=== PATIENT | female | born 1995 | race African-American/Black ===

== ENCOUNTER 2020-09-11 11:30 | Emergency (ER) | payer OTHER ==
[~2020-09-11] VITALS: Ht 162.6 cm; Wt 83.3 kg
[2020-09-11] MEDS ORDERED: ONDANSETRON 4MG/2ML VIAL IV ONE (14:05)
[2020-09-11 14:22] LABS: BASO # 0.1 10^3/uL (0.0-0.2); BASO % 0.6 % (0.0-1.0); EOS # 0.1 10^3/uL (0.0-0.5); EOS % 0.8 % (0.0-3.0); HEMATOCRIT 39.1 % (36.0-47.0); HEMOGLOBIN 12.7 g/dl (12.0-15.5); LYMPH # 2.8 10^3/uL (1.5-5.0); LYMPH % 32.2 % (24.0-44.0); MEAN CORPUSCULAR HEMOGLOBIN 29.1 pg (27.0-33.0); MEAN CORPUSCULAR HGB CONC 32.5 g/dl (32.0-36.5); MEAN CORPUSCULAR VOLUME 89.5 fl (80.0-96.0); MONO # 0.7 10^3/uL (0.0-0.8); MONO % 8.1 % (2.0-8.0); NEUTROPHILS # 5.1 10^3/uL (1.5-8.5); NEUTROPHILS % 58.1 % (36.0-66.0); PLATELET COUNT, AUTOMATED 282 10^3/uL (150-450); RED BLOOD COUNT 4.37 10^6/uL (4.00-5.40); WHITE BLOOD COUNT 8.8 10^3/uL (4.0-10.0)
[2020-09-11 14:48] LABS: ALBUMIN 3.5 GM/DL (3.2-5.2); ALT/SGPT 22 U/L (12-78); BILIRUBIN,DIRECT < 0.1 MG/DL (0.0-0.2); BILIRUBIN,TOTAL 0.3 MG/DL (0.2-1.0); BLOOD UREA NITROGEN 15 MG/DL (7-18); CALCIUM LEVEL 9.1 MG/DL (8.5-10.1); CARBON DIOXIDE LEVEL 27 MEQ/L (21-32); CHLORIDE LEVEL 107 MEQ/L (98-107); CREATININE FOR GFR 0.73 MG/DL (0.55-1.30); GLOMERULAR FILTRATION RATE > 60.0 (>60); GLUCOSE, FASTING 75 MG/DL (70-100); LIPASE 88 U/L (73-393); POTASSIUM SERUM 3.9 MEQ/L (3.5-5.1); SODIUM LEVEL 139 MEQ/L (136-145)
[2020-09-11] MEDS ORDERED: ONDA4TAB6 PO (15:21)
[2020-09-11] MEDS ORDERED: COLA100C5 PO (15:21)
[2020-09-11 15:35] VITALS: BP 102/58
== END 2020-09-11 15:36 | disposition home or self-care (01) ==
LOC: M ED 11:30
DX: R10.9 Unspecified abdominal pain (principal); R11.2 Nausea with vomiting, unspecified; F17.210 Nicotine dependence, cigarettes, uncomplicated
CPT/HCPCS: 36415; 80048; 80076; 81001; 83690; 84702; 85025; 96374; 99284; J2405

== ENCOUNTER 2020-12-18 05:59 | Observation (INO) | payer OTHER ==
[~2020-12-18] VITALS: Ht 162.6 cm; Wt 77.0 kg
[2020-12-18] VITALS (7 sets, daily range): BP systolic 96–114; BP diastolic 55–71
[~2020-12-18 05:59] MED LIST: COLA100C5 PO; ONDA4TAB6 PO
[2020-12-18] MEDS ORDERED: ceFAZolin SOD 2 GM in IV 1 EA IV ONE (06:00)
[2020-12-18] MEDS ORDERED: LR 1,000 ML IV ONE (06:00)
--- OUTSIDE RECORDS SUMMARY | 2020-12-18 06:04 | CCD ---
Author Author [facility] Organization [facility] Address Unknown Phone Unavailable Care Team Providers Care Mass Communications Instructor Name Role Phone SANJAY, E NELA DO Unavailable Unavailable SANJAY, E NELA DO Unavailable Unavailable SANJAY, E NELA DO Unavailable Unavailable SANJAY, E NELA DO Unavailable Unavailable SANJAY, E NELA DO Unavailable Unavailable SANJAY, E NELA DO Unavailable Unavailable SANJAY, E NELA DO Unavailable Unavailable SANJAY, E NELA DO Unavailable Unavailable SANJAY, E NELA DO Unavailable Unavailable SANJAY, E NELA DO Unavailable Unavailable SANJAY, E NELA DO Unavailable Unavailable SANJAY, E NELA DO Unavailable Unavailable SANJAY, E NELA DO Unavailable Unavailable SANJAY, E NELA DO Unavailable Unavailable SANJAY, E NELA DO Unavailable Unavailable SANJAY, E NELA DO Unavailable Unavailable SANJAY, E NELA DO Unavailable Unavailable SANJAY, E NELA DO Unavailable Unavailable SANJAY, E NELA DO Unavailable Unavailable SANJAY, E NELA DO Unavailable Unavailable SANJAY, E NELA DO Unavailable Unavailable SANJAY, E NELA DO Unavailable Unavailable Re-disclosure Warning The records that you are about to access may contain information from federally-assisted alcohol or drug abuse programs. If such information is present, then the following federally mandated warning applies: This information has been disclosed to you from records protected by federal confidentiality rules (42 CFR part 2). The federal rules prohibit you from making any further disclosure of this information unless further disclosure is expressly permitted by the written consent of the person to whom it pertains or as otherwise permitted by 42 CFR part 2. A general authorization for the release of medical or other information is NOT sufficient for this purpose. The Federal rules restrict any use of the information to criminally investigate or prosecute any alcohol or drug abuse patient.The records that you are about to access may contain highly sensitive health information, the redisclosure of which is protected by Article 27-F of the [facility] Public Health law. If you continue you may have access to information: Regarding HIV / AIDS; Provided by facilities licensed or operated by the [facility] Office of Mental Health; or Provided by the [facility] Office for People With Developmental Disabilities. If such information is present, then the following [facility] mandated warning applies: This information has been disclosed to you from confidential records which are protected by state law. State law prohibits you from making any further disclosure of this information without the specific written consent of the person to whom it pertains, or as otherwise permitted by law. Any unauthorized further disclosure in violation of state law may result in a fine or long term sentence or both. A general authorization for the release of medical or other information is NOT sufficient authorization for further disc losure. Encounters Encounter Providers Location Date Indications Data Source(s ) Outpatient Attender: NELA Stubbs/Kacy/Jeff/Jeffry mora 08/06/2020 09:15:00 AM EDT [facility] ([facility]) Immunizations Vaccine Date Status Description Data Source(s) COVID-19 VACCINE Too 05/27/2020 12:00:00 AM EDT completed [facility] Vaccine Series Complete: YESThis Data wa s Submitted to [facility] Via [employer]. Medications No Information Insurance Providers Payer name Policy type / Coverage type Policy ID Covered constitution party ID Covered constitution party's relationship to carmona Policy [place] Plan Information [facility] [id number] Problems, Conditions, and Diagnoses No Information Surgeries/Procedures Procedure Description Date Indications Data Source(s) OFFICE OUTPATIENT NEW 45 MINUTES 08/06/2020 12:00:00 A M [facility] Results No Information Social History No Information Vital Signs ID Date Data Source UNK Name Value Range Interpretation Code Description Data Source(s) Systolic blood pressure 108 mm[Hg] 108 mm[Hg] [facility] ([facility]) Diastolic blood pressure 68 mm[Hg] 68 mm[Hg] [facility] ([facility]) Heart rate 84 /min 84 /min [facility] Respiratory rate 16 /min 16 /min [facility] ( [facility]) Body temperature 97.2 [degF] 97.2 [degF] [facility] ([facility]) Body height 64 [in_i] 64 [in_i] [facility] ([facility]) 5'4" Body weight 178.00 [lb_av] 178.00 [lb_av] [facility] ([facility]) Body mass index (BMI) [Ratio] 30.6 kg/m2 30.6 k g[facility] [place] body weight 120 [lb_av] 120 [lb_av] [facility] ([facility]) Body weight 80.741 kg 80.741 kg [facility] ([facility]) Body surface area Derived from formula 1.86 m2 1.86 m2 [facility] ([facility]) Respiratory rate 14 /min 14 /min [facility] ( [facility]) Body height 64 [in_i] 64 [in_i] [facility] ([facility]) 5'4" Body weight 179.00 [lb_av] 179.00 [lb_av] [facility] ([facility]) Body mass index (BMI) [Ratio] 30.7 kg/m2 30.7 k g/m2 [facility] [place] body weight 120 [lb_av] 120 [lb_av] [facility] ([facility]) Body weight 81.194 kg 81.194 kg [facility] ([facility]) Body surface area Derived from formula 1.87 m2 1.87 m2 [facility] ([facility]) Body weight 179.00 [lb_av] 179.00 [lb_av] [facility] ([facility]) Systolic blood pressure 102 mm[Hg] 102 mm[Hg] M [facility] ([facility]) Diastolic blood pressure 64 mm[Hg] 64 mm[Hg] [facility] ([facility]) Heart rate 80 /min 80 /min [facility] ([facility]) Respiratory rate 14 /min 14 /min [facility] ( [facility]) Body height 64 [in_i] 64 [in_i] [facility] ([facility]) 5'4" Body mass index (BMI) [Ratio] 30.7 kg/m2 30.7 k g/m2 [facility] ([facility]) [place] body weight 120 [lb_av] 120 [lb_av] [facility] ([facility]) Body weight 81.194 kg 81.194 kg [facility] ([facility]) Body surface area Derived from formula 1.87 m2 1.87 m2 [facility] ([facility])
--- OUTSIDE RECORDS SUMMARY | 2020-12-18 06:04 | CCD | Continuity of Care Document ---
Author Author Matthew GRACE DO Organization Unknown Address [address] [place] [id number] Phone [phone] Care Team Providers Care Grocery Associate Name Role Phone Nguyen Walters AUTM Unavailable Ronanio AUTM [phone] Problems Description No Information Available Social History Type Date Description Comments Sex Unknown ETOH Use Rarely Tobacco Use Start: Unknown vapes regularly Smoking Status Reviewed: 08/06/20 vapes regularly Allergies and adverse reactions Description No Known Drug Allergies Medications Active Medications SIG Qnty Indications Ordering Provide r Date Multivitamin Unknown Immunizations Description No Information Available Vital Signs Date Vital Result Comment 11/28/2020 10:27am BP Systolic 108 mmHg BP Diastolic 68 mmHg Heart Rate 84 /min Respiratory Rate 16 /min Body Temperature 97.2 F Height 64 inches 5'4" Weight 178.00 lb BMI (Body Mass Index) 30.6 kg/m2 [place] Body Weight 120 lb Weight 80.741 kg BSA (Body Surface Area) 1.86 m2 08/06/2020 9:30am BP Systolic 102 mmHg BP Diastolic 64 mmHg Heart Rate 80 /min Respiratory Rate 14 /min Height 64 inches 5'4" Weight 179.00 lb BMI (Body Mass Index) 30.7 kg/m2 [place] Body Weight 120 lb Weight 81.194 kg BSA (Body Surface Area) 1.87 m2 Results Description No Information Available Procedures Date Code Description Status 08/06/2020 94663 Office/Outpatient New Moderate M DM 45-59 Minutes Completed Medical Devices Description No Information Available Encounters Type Date Location Provider Dx Diagnosis Office Visit 08/06/2020 9:15a [facility] Jessica Grace DO N62 Hypertrophy of breast Assessments Date Code Description Provider 11/28/2020 N62 Hypertrophy of breast Jessica garza DO 11/28/2020 Z01.818 Encounter for other preprocedura l examination Jessica Grace DO 08/06/2020 N62 Hypertrophy of breast Jessica garza DO Plan of Treatment Future Appointment(s):* 12/22/2020 1:15 pm - Jessica Grace DO at [facility] * 12/18/2020 10:30 am - Jessica Grace DO at [facility] Functional Status Description No Information Available Mental Status Description No Information Available Referrals Refer to Dr Reason for Referral Status Appt Date Jessica Grace D.O. BREAST REDUCTION Scheduled 08/06/2020 [facility] [address] [place] [address], [place] [address] [phone]
[2020-12-18 06:54] LABS: HEMATOCRIT 39.2 % (36.0-47.0); HEMOGLOBIN 12.8 g/dl (12.0-15.5); MEAN CORPUSCULAR HEMOGLOBIN 29.6 pg (27.0-33.0); MEAN CORPUSCULAR HGB CONC 32.7 g/dl (32.0-36.5); MEAN CORPUSCULAR VOLUME 90.5 fl (80.0-96.0); PLATELET COUNT, AUTOMATED 313 10^3/uL (150-450); RED BLOOD COUNT 4.33 10^6/uL (4.00-5.40); WHITE BLOOD COUNT 7.1 10^3/uL (4.0-10.0)
[2020-12-18] MEDS ORDERED: LIDOCAINE 2% 100MG/5ML SDV (FOR ANES.) As Ordered ONE ×2 (06:59→07:22)
[2020-12-18] MEDS ORDERED: propofoL 200 MG/20 ML VIAL As Ordered ONE ×2 (06:59→07:23)
[2020-12-18] MEDS ORDERED: LIDOCAINE 1% MDV 20ML VIAL As Ordered ONE (07:08)
[2020-12-18] MEDS ORDERED: ceFAZolin 1GM VIAL (J0690 PER 500MG) As Ordered ONE (07:08)
[2020-12-18] MEDS ORDERED: BUPIVACAINE LIPOSOME/PF 1.3% 20ML VIAL (13.3MG/ML)(EXPAREL)(C9290 PER1MG) As Ordered ONE (07:09)
[2020-12-18] MEDS ORDERED: EPINEPHrine INJ 1 MG/ML 1ML AMP As Ordered ONE (07:09)
[2020-12-18] MEDS ORDERED: GENTAMICIN SULF 80MG/2ML VIAL As Ordered ONE (07:17)
[2020-12-18] MEDS ORDERED: dexameTHASONE 4 MG/ML 1ML VIAL (J1100 PER 1MG) As Ordered ONE (07:23)
[2020-12-18] MEDS ORDERED: fentaNYL 250 MCG/5 ML INJECTION (J3010) As Ordered ONE (07:23)
[2020-12-18] MEDS ORDERED: MIDAZOLAM INJ 2MG/2ML VIAL (J2250 PER 1MG) As Ordered ONE (07:23)
[2020-12-18] MEDS ORDERED: ROCURONIUM BROMIDE 50 MG/5 ML VIAL As Ordered ONE ×2 (07:23→08:39)
[2020-12-18 07:30] LABS: BLOOD UREA NITROGEN 13 MG/DL (7-18); CALCIUM LEVEL 9.2 MG/DL (8.5-10.1); CARBON DIOXIDE LEVEL 28 MEQ/L (21-32); CHLORIDE LEVEL 103 MEQ/L (98-107); CREATININE FOR GFR 0.86 MG/DL (0.55-1.30); GLOMERULAR FILTRATION RATE > 60.0 (>60); GLUCOSE, FASTING 88 MG/DL (70-100); POTASSIUM SERUM 3.9 MEQ/L (3.5-5.1); SODIUM LEVEL 139 MEQ/L (136-145)
[2020-12-18] MEDS ORDERED: ePHEDrine SULFATE 25 MG/5 ML(5MG/ML) SYRINGE As Ordered ONE (08:38)
[2020-12-18] MEDS ORDERED: HYDROmorphone HCL 2 MG/ML 1ML VIAL As Ordered ONE (09:08)
[2020-12-18] MEDS ORDERED: SUGAMMADEX SODIUM 500 MG/5 ML VIAL (BRIDION) As Ordered ONE (09:08)
[2020-12-18] MEDS ORDERED: METOCLOPRAMIDE INJ 10MG/2ML VIAL (J2765 PER 1) As Ordered ONE (09:08)
[2020-12-18] MEDS ORDERED: ACETAMINOPHEN 1000MG 100ML IV BTL (OFIRMEV) (J0131 PER 10MG) As Ordered ONE (10:56)
--- NOTE | 2020-12-18 11:42 | POST-OPPD ---
Postoperative Procedure Note Date Of Procedure: Dec 18, 2020 PREOPERATIVE DIAGNOSIS: Bilateral breast hypertrophy POSTOPERATIVE DIAGNOSIS: same PROCEDURE: Bilateral breast reduction SURGEON: Dr Grace RUBY ON [employer] WEB DEVELOPER: none ANESTHESIA: general ESTIMATED BLOOD LOSS: 75 cc FINDINGS: large breasts SPECIMENS: Right breast 587 gm, Left breast 612 gm. COMPLICATIONS: none REPLACED: none DRAINS: 10 mm SANCHEZ x 2 POSTOPERATIVE CONDITION: stable NELA GRACE DO Dec 18, 2020 11:42
--- NOTE | 2020-12-18 11:42 | ROOPDOC ---
[facility] Report Of Operation Report of Operation DATE OF PROCEDURE: 12/18/20 PREOPERATIVE DIAGNOSIS: Bilateral breast hypertrophy POSTOPERATIVE DIAGNOSIS: same PROCEDURE: Bilateral breast reduction SURGEON: Dr Grace EXECUTIVE VP: none ANESTHESIA: general ESTIMATED BLOOD LOSS: 75 cc FINDINGS: large breasts SPECIMENS: Right breast 587 gm, Left breast 612 gm. COMPLICATIONS: none REPLACED: none DRAINS: 10 mm SANCHEZ x 2 POSTOPERATIVE CONDITION: stable DESCRIPTION OF PROCEDURE: This is a 24-year-old female who upper back and neck pain worsened by large breasts. 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 She is scheduled for bilateral breast reduction. Risks, benefits, and alternatives were discussed with the patient in detail, and she is ready to proceed. The day of surgery, she was marked in the upright position and informed consent was obtained. She measures 32 on the right and 34 cm in the left from sternal notch to nipple, IMF at 22 cm bilaterally. She was brought into the operating room and placed in the supine position. Preoperative antibiotics were given. Sequential pneumatic stocking were placed on the lower calves. General anesthesia was induced. She was prepped and draped in the usual sterile fashion. We started our procedure on the right side. Her nipple areolar complex was outlined 45 mm in diameter, and the patient was marked according superior medial pedicle. We started our incision by scoring the nipple areolar complex area, and then dissection was continued until the inferior lateral portion of the breast was resected. Hemostasis was obtained using electrocautery. The pedicle was de-epithelialized using Haywood scissors, good perfusion to the nipple at all times. Wound was irrigated with gentamicin solution. We used Exparel 6 cc for local anesthesia to infiltrate in the Pectoralis muscle as well as the breast tissue. Kiester Tisseal coagulation agent applied. Than, pedicle was turned superior to its new location at 22 cm from sternal notch. The mound was re- created using conforming 0 Vicryl sutures. Pillars were closed with interrupted 3-0 Monocryl sutures. The vertical limb was 8 cm. Excess tissue inferiorly was measured and resected, creating the horizontal scar. Horizontal scar was closed with interrupted 3-0 Monocryl sutures as well as 3-0 Monocryl V-Loc suture. Nipple area complex was brought into view through the new opening and sutured in place with 3-0 and 4-0 Monocryl sutures and a 5-0 plain. A 10 mm Kaushik-Oneil drain was placed through the lateral portion of the horizontal incision. Then we turned our attention to the left side. Her nipple areolar complex was outlined 45 mm in diameter, and the patient was marked according superior medial pedicle. We started our incision by scoring the nipple areolar complex area, and then dissection was continued until the inferior lateral portion of the breast was resected. Hemostasis was obtained using electrocautery. The pedicle was de- epithelialized using Haywood scissors, good perfusion to the nipple at all times. Wound was irrigated with gentamicin solution. We used Exparel 6 cc for local anesthesia to infiltrate in the Pectoralis muscle as well as the breast tissue. Kiester Tisseal coagulation agent applied. Than, pedicle was turned superior to its new location at 22 cm from sternal notch. The mound was re-created using conforming 0 Vicryl sutures. Pillars were closed with interrupted 3-0 Monocryl sutures. The vertical limb was 8 cm. Excess tissue inferiorly was measured and resected, creating the horizontal scar. Horizontal scar was closed with interrupted 3-0 Monocryl sutures as well as 3-0 Monocryl V-Loc suture. Nipple area complex was brought into view through the new opening and sutured in place with 3-0 and 4-0 Monocryl sutures and a 5-0 plain. A 10 mm Kaushik-Oneil drain was placed through the lateral portion of the horizontal incision. Remaining Exparel injected in the horizontal incision. Total Exparel use 20 cc. Resected tissue sent to pathology in two specimens right and left breast tissue. Right breast 587 grams, left breast 612 grams. Dressings were applied to vertical and horizontal incision: Prinio strips and Dermabond. Nipples areolar complex: Xeroform and a bulky dressing with a surgical bra. Patient was extubated in the operating room without difficulty and was transferred to the recovery room in stable condition. . NELA GRACE DO Dec 18, 2020 11:42
[2020-12-18] MEDS ORDERED: ONDANSETRON 4MG/2ML VIAL IV PRN ×2 (11:45)
[2020-12-18] MEDS ORDERED: oxyCODONE 5MG TAB PO PRN (11:45)
[2020-12-18] MEDS ORDERED: fentaNYL 100 MCG/2 ML INJECTION (J3010) IV PRN (11:45)
[2020-12-18] MEDS ORDERED: ACETAMINOPHEN TAB 650MG DOSE (2X325MG) PO PRN (11:45)
[2020-12-18] MEDS ORDERED: LR 1,000 ML IV SCH (11:45)
[2020-12-18] MEDS ORDERED: HYDROMORPHONE HCL 0.5 MG/ 0.5 ML SYRINGE (J1170 PER 1) IV PRN (11:45)
[2020-12-18] MEDS ORDERED: MORPHINE 4 MG/ML 1ML VIAL/SYRINGE (J2270) IV PRN (11:45)
[2020-12-18] MEDS: LR 1,000 ML IV SCH (13:00)
[2020-12-18] MEDS: PERCOCET 5MG/325MG TAB PO PRN (14:16)
[2020-12-18] MEDS ORDERED: PERCOCET 5MG/325MG TAB PO PRN (15:55)
[2020-12-18] MEDS: ceFAZolin SOD 1 GM in D5W MINI-BAG PLUS 50 ML IV SCH (16:30)
[2020-12-19] MEDS: ceFAZolin SOD 1 GM in D5W MINI-BAG PLUS 50 ML IV SCH ×2 (01:08→08:07)
[2020-12-19] MEDS: LR 1,000 ML IV SCH (01:09)
[2020-12-19 01:10] VITALS: BP 106/63
[2020-12-19] MEDS: PERCOCET 5MG/325MG TAB PO PRN ×2 (01:12→08:07)
[2020-12-19 06:00] VITALS: BP 109/64
--- NOTE | 2020-12-19 09:15 | IPNPDOC ---
Subjective General Date Seen: Dec 19, 2020 Subject Chief Complaint/History The patient is a 24-year-old female admitted with a reason for visit of Bilateral Breast Hypertrophy. Patient status post bilateral breast reduction postop day 1. She is doing well. Pain controlled, tolerating regular diet. Current Medications Current Medications Current Medications Medications (Trade) Dose Ordered Sig/Nelson Route PRN Reason Start Time Stop Time Status Last Admin Dose Admin Acetaminophen (Tylenol Tab) 650 mg Q6H PRN PO MILD PAIN (PS 1-2) 12/18/20 11:45 Cefazolin Sodium 1 gm/Dextrose 50 ml @ 100 mls/hr Q8H IV 12/18/20 16:00 12/19/20 08:07 Fentanyl Citrate (Sublimaze) 25 mcg Q5MP PRN IV PAIN LEVEL 8-10 12/18/20 11:45 12/18/20 13:45 DC Hydromorphone HCl (Dilaudid) 0.2 mg Q5MP PRN IV PAIN LEVEL 5-7 12/18/20 11:45 12/18/20 13:45 DC Lactated Ringer's 1,000 ml @ 75 mls/hr [id number] IV 12/18/20 11:45 12/19/20 01:09 Lactated Ringer's 1,000 ml @ 100 mls/hr Q10H IV 12/18/20 11:45 12/18/20 13:45 DC 12/18/20 12:26 Morphine Sulfate (Morphine Sulfate Inj) 4 mg Q4HP PRN IV SEVERE PAIN (PS 8-10) 12/18/20 11:45 Ondansetron HCl (ZOFRAN INJection) 4 mg Q4H PRN IV NAUSEA OR VOMITING 12/18/20 11:45 Ondansetron HCl (ZOFRAN INJection) 4 mg Q4HP PRN IV NAUSEA OR VOMITING 12/18/20 11:45 12/18/20 13:45 DC Oxycodone HCl (Roxicodone, Oxyir) 5 mg ASDIRECTED PRN PO PAIN LEVEL 1-4 12/18/20 11:45 12/18/20 13:45 DC Oxycodone/ Acetaminophen (Percocet 5mg/ 325mg Tablet) 1 tab Q4HP PRN PO PAIN LEVEL 3-5 12/18/20 15:55 12/18/20 20:54 Oxycodone/ Acetaminophen (Percocet 5mg/ 325mg Tablet) 2 tab Q4HP PRN PO PAIN LEVEL 6-7 12/18/20 11:45 12/19/20 08:07 Allergies Coded Allergies: No Known Allergies (Verified Allergy, Unknown, 09/11/20) Objective Physical Examination Examination GENERAL APPEARANCE:Patient seen, laying in bed, awake, alert, and oriented. Comfortable, in no acute distress. SKIN: Warm and moist. BREAST: Right and left soft, non-tender incisions intact. SANCHEZ drains: L 25/R 35 cc/24 hr. NAC: Viable, warm, symmetrical, mild post-op ecchymosis, no expanding hematoma. HEENT: Normocephalic, atraumatic. Ty Ty palpebral conjunctiva, anicteric sclerae. Lips and mucosa appear moist. NECK: Supple, no thyromegaly. No obvious jugular venous distention. LUNGS: Clear to auscultation bilaterally. No wheezing appreciated. HEART: No chest wall abnormalities. Regular rate and rhythm with no murmurs appreciated. ABDOMEN: Abdomen is soft, non-tender, non-distended. EXTREMITIES: No edema identified. No calf tenderness. Vital Signs Vital Signs Date Time Temp Pulse Resp B/P (MAP) Pulse Ox O2 Delivery O2 Flow Rate FiO2 12/19/20 08:40 4 12/19/20 06:00 98.2 61 109/64 (79) 99 12/19/20 01:10 Room Air 12/18/20 12:00 2.0 I&Os I&O- Last 24 Hours up to 6 AM 12/19/20 06:00 Intake Total 2740 ml Output Total 2135 ml Balance 605 ml Impression Bilateral breast hypertrophy. Status post bilateral breast reduction postop day 1. Stable for discharge. Dressings changed today. Home instructions given to the patient. [place] home today Plan / VTE VTE Prophylaxis Ordered?: Yes NELA GRACE DO Dec 19, 2020 09:15
[2020-12-19] MEDS ORDERED: PERCOCET PO (09:22)
--- OUTSIDE RECORDS SUMMARY | 2020-12-25 07:18 | CCD ---
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 If you continue you may have access to information: Regarding HIV / AIDS; Provided by facilities licensed or operated by the [facility] Office of Mental Health; or Provided by the [facility] Office for People With Developmental Disabilities. If such information is present, then the following [facility] mandated warning applies: This information has been [...] law may result in a fine or group home sentence or both. A general authorization for the release of medical or other information is NOT sufficient authorization for further disc losure. Encounters Encounter Providers Location Date Indications Data Source(s ) Outpatient Attender: NELA Stubbs/Kacy/Jeff/Jeffry mora 08/06/2020 09:15:00 AM EDT [facility] ([facility], ) Immunizations Vaccine Date Status Description Data Source(s) COVID-19 VACCINE Too 05/27/2020 12:00:00 AM EDT completed [facility] Vaccine Series Complete: YESThis Data wa s Submitted to [facility] Via [employer]. Medications No Information Insurance Providers Payer name Policy type / Coverage type Policy ID Covered libertarian ID Covered libertarian's relationship to carmona Policy Carmona Plan Information [facility] [employer] [id number] Problems, Conditions, and Diagnoses No Information Surgeries/Procedures Procedure Description Date Indications Data Source(s) REDUCTION MAMMAPLASTY 12/18/2020 12:00:00 AM EDT [facility] ([facility], ) OFFICE OUTPATIENT NEW 45 MINUTES 08/06/2020 12:00:00 A M EDT [facility] ([facility], ) Results ID Date Data Source [id number] 12/18/2020 08:41:00 AM EDT [facility] ([facility], ) Name Value Range Interpretation Code Description Data Leslie e(s) Supporting Document(s) Surgical pathology study Laboratory test result [facility] ([facility], ) FINAL DIAGNOSIS AB - Breast tissue, right and left, bilateral reduction: Benign fibroadipocytic breast parenchyma and skin. 12/19/2020 - 1120 CLINICAL DIAGNOSIS Bilateral breast hypertrophy 12/18/2020 - 1553 GROSS DIAGNOSIS A - Received in formalin labeled "right breast tissue, 587 grams" consists of fragments of skin and soft unremarkable breast parenchyma measuring 25.0 x 17.0 x 4.0 cm in aggregate. Sectioning the specimen reveals unremarkable breast parenchyma with no grossly apparent mass/lesions. Representatively submitted in one block. B - Received in formalin labeled "left breast tissue, 612 grams" consists of fragments of skin and soft unremarkable breast parenchyma measuring 27.0 x 15.0 x 4.0 cm in aggregate. Sectioning the specimen reveals unremarkable breast parenchyma with no grossly apparent mass/lesions. Representatively submitted in one block. -SV 12/19/2020 - 1120 Signed AFRICA SINGH MD 12/19/2020 1209 ID Date Data Source [id number] 12/18/2020 06:43:00 AM EDT [facility] ([facility]) Name Value Range Interpretation Code Description Data Leslie [facility](s) Supporting Document(s) Glucose, Fasting 88 mg/dL 70-100 Normal (applies to non-numeric results) [facility] ([facility], ) Blood Urea Nitrogen 13 mg/dL 7-18 Normal (applies to non-nume drea results) [facility] ([facility]) Sodium Level 139 meq/L 136-145 Normal (applies to non-numeric res ults) [facility] ([facility]) Glomerular Filtration Rate Laboratory test result Normal (applies to non- numeric results) [facility] ([facility]) <content>Units are mL/min/1.73 m2</content>
<content></content>
<content>Chronic Kidney Disease Staging per NKF:</content>
<content></content>
<content>Stage I & II GFR >=60 Normal to Mildly Decreased</content>
<content>Stage III GFR 30-59 Moderately Decreased</content>
<content>Stage IV GFR 15-29 Severely Decreased</content>
<content>Stage V GFR <15 Very Little GFR Left</content>
<content>ESRD GFR <15 on FILTER SCREEN CLEANER</content>
<content></content> Creatinine For GFR 0.86 mg/dL 0.55-1.30 Normal (applies to non -numeric results) [facility] ([facility]) Chloride Level 103 meq/L 98-107 Normal (applies to non-numeric r esults) [facility]) Carbon Dioxide Level 28 meq/L 21-32 Normal (applies to non-num gertrude results) [facility]) Potassium Serum 3.9 meq/L 3.5-5.1 Normal (applies to non-numeric results) [facility]) Anion Gap 8 meq/L 8-16 Normal (applies to non-numeric resul ts) [facility]) Calcium Level 9.2 mg/dL 8.5-10.1 Normal (applies to non-numeric re sults) [facility]) ID Date Data Source [id number] 12/18/2020 06:43:[address] [facility]) Name Value Range Interpretation Code Description Data Leslie rce(s) Supporting Document(s) Hemoglobin 12.8 g/dL 12.0-15.5 Normal (applies to non-numeric resul ts) [facility]) White Blood Count 7.1 10 4.0-10.0 Normal (applies to non-numeri c results) [facility]) Red Blood Count 4.33 10 4.00-5.40 Normal (applies to non-numeric results) [facility]) Hematocrit 39.2 % 36.0-47.0 Normal (applies to non-numeric resul ts) [facility]) Mean Corpuscular Hemoglobin 29.6 pg 27.0-33.0 Norm al (applies to non-numeric results) [facility] ([facility]) Mean Corpuscular Volume 90.5 fl 80.0-96.0 Normal ( applies to non-numeric results) [facility] ([facility]) Mean Corpuscular HGB Conc 32.7 g/dL 32.0-36.5 Normal (applies to non-numeric results) [facility] ([facility]) Platelet Count, Automated 313 10 150-450 Normal (applies to non-numeric results) [facility] ([facility]) Red Cell Distribution Width 12.1 % 11.5-14.5 Norm al (applies to non-numeric results) [facility] ([facility]) Nucleated Red Blood Cell % 0.0 % 0-0 Normal (applies to n on-numeric results) [facility] ([facility]) ID Date Data Source [id number] 12/15/2020 09:32:00 AM EDT [facility] Name Value Range Interpretation Code Description Data Leslie rce(s) Supporting Document(s) SARS coronavirus 2 RNA Not Detected [facility] This lab was ordered by [facility] and reported by [facility]. Procedure Social History No Information Vital Signs ID Date Data Source UNK Name Value Range Interpretation Code Description Data Source(s) [place] body weight 120 [lb_av] 120 [lb_av] [facility] ([facility]) Body surface area Derived from formula 1.86 m2 1.86 m2 [facility] ([facility]) Systolic blood pressure 108 mm[Hg] 108 mm[Hg] [facility] [facility]) Diastolic blood pressure 68 mm[Hg] 68 mm[Hg] [facility] ([facility]) Heart rate 84 /min 84 /min [facility] ([facility]) Respiratory rate 16 /min 16 /min [facility] ( [facility]) Body temperature 97.2 [degF] 97.2 [degF] [facility] ([facility]) Body height 64 [in_i] 64 [in_i] [facility] ([facility]) 5'4" Body weight 178.00 [lb_av] 178.00 [lb_av] [facility] ([facility]) Body mass index (BMI) [Ratio] 30.6 kg/m2 30.6 k g/m2 [facility] ([facility]) Body weight 80.741 kg 80.741 kg [facility] ([facility]) Respiratory rate 14 /min 14 /min [facility] ( [facility]) Body height 64 [in_i] 64 [in_i] [facility] ([facility]) 5'4" Respiratory rate 14 /min 14 /min [facility] ( [facility]) Body weight 179.00 [lb_av] 179.00 [lb_av] [facility] ([facility]) Body mass index (BMI) [Ratio] 30.7 kg/m2 30.7 k g/m2 [facility] ([facility]) [place] body weight 120 [lb_av] 120 [lb_av] [facility] ([facility]) Body weight 81.194 kg 81.194 kg [facility] ([facility]) Body height 64 [in_i] 64 [in_i] [facility] ([facility]) 5'4" Body weight 179.00 [lb_av] 179.00 [lb_av] [facility] ([facility]) Body mass index (BMI) [Ratio] 30.7 kg/m2 30.7 k g/m2 [facility] ([facility]) [place] body weight 120 [lb_av] 120 [lb_av] [facility] ([facility]) Body weight 81.194 [facility] Body surface area Derived from formula 1.87 m2 1.87 m2 [facility] ([facility]) Body surface area Derived from formula 1.87 m2 1.87 m2 [facility] ([facility]) Systolic blood pressure 102 mm[Hg] 102 mm[Hg] [facility] ([facility]) Diastolic blood pressure 64 mm[Hg] 64 mm[Hg] [facility] ([facility]) Heart rate 80 /min 80 /min [facility] ([facility])
--- OUTSIDE RECORDS SUMMARY | 2020-12-25 07:18 | CCD | Continuity of Care Document ---
Author Author Matthew GRACE DO Organization Unknown Address [address] [place] [address] Phone [phone] Care Team Providers Care Oxygen System Tester Name Role Phone Nguyen Walters AUTM Unavailable Ronan AUTM [phone] Problems Description No Information Available Social History [...] lb BMI (Body Mass Index) 30.6 kg/m2 [place] Body Weight 120 lb Weight 80.741 kg BSA (Body Surface Area) 1.86 m2 08/06/2020 9:30am BP Systolic 102 mmHg BP Diastolic 64 mmHg Heart Rate 80 /min Respiratory Rate 14 /min Height 64 inches 5'4" Weight 179.00 lb BMI (Body Mass Index) 30.7 kg/m2 [place] Body Weight 120 lb Weight 81.194 kg BSA (Body Surface Area) 1.87 m2 Results Test Acquired Date Facility Test Result H/L Range Note Laboratory test finding [facility]18[facility]2020 [facility] Main Lab [address], [place] [id number] [phone] Pathology Request For Service (SEE NOTE) 1 Complete Blood Count 12/18/2020 [facility] Main Lab [address], [place] [id number] [phone] White Blood Count 7.1 10 Normal 4.0-10.0 Red Blood Count 4.33 10 Normal 4.00-5.40 Hemoglobin 12.8 g/dL Normal 12.0-15.5 Hematocrit 39.2 % Normal 36.0-47.0 Mean Corpuscular Volume 90.5 fl Normal 80.0-96.0 Mean Corpuscular Hemoglobin 29.6 pg Normal 27.0-33.0 Mean Corpuscular HGB Conc 32.7 g/dL Normal 32.0-36.5 Red Cell Distribution Width 12.1 % Normal 11.5-14.5 Platelet Count, Automated 313 10 Normal 150-450 Nucleated Red Blood Cell % 0.0 % Normal 0-0 Basic Metabolic Profile 12/18/2020 [facility] Main Lab [address] [place] [address] [phone] Glucose, Fasting 88 mg/dL Normal 70-100 Blood Urea Nitrogen 13 mg/dL Normal 7-18 Creatinine For GFR 0.86 mg/dL Normal 0.55-1.30 Glomerular Filtration Rate > 60.0 Normal >60 2 Sodium Level 139 mEq/L Normal 136-145 Potassium Serum 3.9 mEq/L Normal 3.5-5.1 Chloride Level 103 mEq/L Normal 98-107 Carbon Dioxide Level 28 mEq/L Normal 21-32 Anion Gap 8 mEq/L Normal 8-16 Calcium Level 9.2 mg/dL Normal 8.5-10.1 1 FINAL DIAGNOSIS AB - Breast tissue, right and left, bilateral reduction: Benign fibroadipocytic breast parenchyma and skin. 12/19/2020 - 1121 CLINICAL DIAGNOSIS Bilateral breast hypertrophy 12/18/2020 - [...] submitted in one block. 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 Date Code Description Status 12/18/2020 72835 Breast Reduction Completed 08/06/2020 70590 Office/Outpatient New Moderate M DM 45-59 Minutes Completed Medical Devices Description No Information Available Encounters Type Date Location Provider Dx Diagnosis Office Visit 08/06/2020 9:15a [facility] Jessica Grace, N62 Hypertrophy of breast Assessments Date Code Description Provider 12/18/2020 N62 Hypertrophy of breast Jessica Pale y, DO 11/28/2020 N62 Hypertrophy of breast Jessica Pale y, DO 11/28/2020 Z01.818 Encounter for other preprocedura l examination Jessica Grace, DO 08/06/2020 N62 Hypertrophy of breast Jessica Pale y, DO Plan of Treatment No Information Available Functional Status Description No Information Available Mental Status Description No Information Available Referrals Refer to Dr Reason for Referral Status Appt Jessica Jimenes D.O. BREAST REDUCTION Scheduled 08/06/2020 [facility] [address] [place] [address], [place] [address] [phone]
--- OUTSIDE RECORDS SUMMARY | 2020-12-25 07:18 | CCD | Continuity of Care Document ---
Author Author Matthew GRACE DO Organization Unknown Address [address] [place] [address] Phone [phone] Care Team Providers Care Statistical Clerk Name Role Phone Nguyen Walters AUTM Unavailable Ronan AUTM [phone] Problems Description No Information Available Social History [...] lb BMI (Body Mass Index) 30.6 kg/m2 [place] Body Weight 120 lb Weight 80.741 kg BSA (Body Surface Area) 1.86 m2 08/06/2020 9:30am BP Systolic 102 mmHg BP Diastolic 64 mmHg Heart Rate 80 /min Respiratory Rate 14 /min Height 64 inches 5'4" Weight 179.00 lb BMI (Body Mass Index) 30.7 kg/m2 [place] Body Weight 120 lb Weight 81.194 kg BSA (Body Surface Area) 1.87 m2 Results Test Acquired Date Facility Test Result H/L Range Note Laboratory [facility] Lab [address], [place] [id number] [phone] Pathology Request For Service (SEE NOTE) 1 Complete Blood Count 12/18/2020 [facility] Main Lab [address], [place] [id number] [phone] White Blood Count 7.1 10 Normal 4.0-10.0 [...] % Normal 0-0 Basic Metabolic Profile 12/18/2020 [facility] Main Lab [address] [place] [address] [phone] Glucose, Fasting 88 mg/dL Normal 70-100 Blood [...] Little GFR Left ESRD GFR <15 on YEAST TENDER Procedures Date Code Description Status 12/18/2020 55756 Breast Reduction Completed 08/06/2020 84084 Office/Outpatient New Moderate M DM 45-59 Minutes Completed Medical Devices Description No Information Available Encounters Type Date Location Provider Dx Diagnosis Office Visit 08/06/2020 9:15a [facility] Plastic Surgery Jessica Grace, N62 Hypertrophy of [...] Jessica Jimenes D.O. BREAST REDUCTION Scheduled 08/06/2020 [facility] [address] [place] [address], [place] [address] [phone]
== END 2020-12-19 12:00 | disposition home or self-care (01) ==
LOC: M SDC 05:59 → M MS5PR 11:42 → M SDC 12:40 → M MS5PR 12-19 12:00
PROVIDERS: ADMIT Plastic Surgery Surgery of the Hand; ATTEND Plastic Surgery Surgery of the Hand
DX: N62 Hypertrophy of breast (principal); M54.6 Pain in thoracic spine; Z72.0 Tobacco use
CPT/HCPCS: 19318; 36415; 80048; 81025; 85027; 88305; 96374; 96376; C9290; J0131; J0690; J1100; J1170; J1580; J2250; J2765; J3010